=== PATIENT | female | born 1970 | race Caucasian/White ===

== ENCOUNTER → 2019-05-31 10:41 | Outpatient (BNVA) | payer MEDICAID, SELFPAY | PROVIDERS: Family Provider Internal Medicine; PCP Internal Medicine; Referring Provider Specialist; Visit Provider Psychiatry & Neurology Neurology | DX: M54.12 Radiculopathy, cervical region (principal); M79.601 Pain in right arm; M79.602 Pain in left arm; Z87.891 Personal history of nicotine dependence | CPT/HCPCS: 95886; 95910 ==

== ENCOUNTER 2019-06-24 10:53 | Observation (INO) | payer MEDICAID, SELFPAY ==
[2019-06-21 14:25] VITALS: BMI 38.5
[2019-06-24] VITALS (14 sets, daily range): BP systolic 116–158; BP diastolic 74–93; PULSE 71–108; RESP 14–20; TEMP 36.3–37.5; O2SAT 93–99
--- NOTE | 2019-06-24 | XR_ITS ---
WS: [id number] XR cervical spine 1V 10424 REASON FOR EXAM: ACDF FINDINGS: Degenerated disc changes C5-C6. The cervicothoracic junction is poorly . An endotracheal tube is seen in good position. XR/XR cervical spine 1V 91560 IMPRESSION: Good position endotracheal tube. Degenerated disc changes C5-C6. Poor definition of the cervicothoracic junction.
--- NOTE | 2019-06-24 06:49 | ANES.PREANE2 ---
Pre-Anesthetic Assessment Pre-Anesthetic Assessment: Height/Weight: Height 1.7 m Weight 111.584 kg Preop Diagnosis: Intervertebral disc disorder with myelopathy, midcervical Proposed Procedure: Operation Date: 06/24/19 07:00 Proposed Procedures p Anterior Cervical Discecotmy&Fusion 2Lev C4-C5,C5-C5 ACDFF 63912 M50.020(Not Applicable) - Anibal Wan MD Last intake: Intake Last Liquid Date 06/23/19 Last Liquid Time 22:00 Last Solid Date 06/23/19 Last Solid Time 19:30 Social: Social History: Tobacco (quit) and No alcohol Exam: Pre-Anes Outpt Exam: alert, oriented x 3, clear to auscultation bilaterally and regular rate & rhythm Airway: Submandibular: WNL Cervical ROM: WNL MP: 2 History/ROS: No significant history except as noted Pulmonary: Pulmonary: Asthma CV/HEM: CV/HEM: HTN Hepatic: Hepatic: None reported GI: GI: GERD Metabolic: Metabolic: Morbid obesity Musc/skel: Musc/skel: Lower Back Pain Neuropsych: Neuropsych: Anxiety, Depression and Neuropathy (left hand) Anesthetic Plan: ASA status: 3 Anesthesia: Anesthesia Evaluation and General Risk of > 500 ml blood loss (7ml/kg in children): No PFSH Anesthesia PFSH: Medical History Acute asthmatic bronchitis Cervical disc disorder with myelopathy of mid-cervical region Dysthymic disorder Extrapyramidal and movement disorder, unspecified GERD (gastroesophageal reflux disease) HNP (herniated nucleus pulposus), lumbar Hyponatremia Migraine Pneumonia Radiculopathy, site unspecified Spondylolisthesis, cervical region Surgical History H/O tubal ligation History of lumbar laminectomy Left L4-L5 laminotomy/discectomy/foraminotomy; 06/15/2017; [facility]. Family History Mother Stroke Deep vein thrombosis Secondary to cardiac problems Lung disease COPD Denies family history of Anesthesia complication Bleeding disorder Social History Smoking and tobacco status: former smoker Quit status (tobacco): has quit using tobacco Year quit tobacco: 2017 Former quit date comment: Started smoking at 15 and smoked 1/2 a pack a day until she quit smoking Alcohol intake: current Alcohol intake frequency: few times a month Alcohol type: wine Lives independently: Yes Household members: spouse Marital status: History of recent travel: No Data Anesthesia Cardiac Studies: No Data to Display
--- NOTE | 2019-06-24 07:00 | PM.HPUD ---
H&P update H&P Update: DATE OF SURGERY/PROCEDURE: 06/24/19 DATE H&P PERFORMED: 06/21/19 H&P UPDATE INFORMATION: H&P completed within last 30 days and H&P to be scanned into chart PREOP DIAGNOSIS: Intervertebral disc disorder with myelopathy, midcervical PRIMARY INDICATION FOR PROCEDURE: Neck pain and upper extremity symptoms. PLANNED PROCEDURE: Operation Date: 06/24/19 07:00 Proposed Procedures C4-C5,C5-C6 ACDFF 58486 M50.020(Not Applicable) - Anibal Wan MD Full H&P Perinent History: Medical/Surgical History: Medical History (Updated 06/24/19 @ 06:50 by Danilo Ibanez MD) Acute asthmatic bronchitis Cervical disc disorder with myelopathy of mid-cervical region Dysthymic disorder Extrapyramidal and movement disorder, unspecified GERD (gastroesophageal reflux disease) HNP (herniated nucleus pulposus), lumbar Hyponatremia Migraine Pneumonia Radiculopathy, site unspecified Spondylolisthesis, cervical region Family History: Family History (Updated 05/24/19 @ 13:16 by Lynn Caldwell LPN) Mother Stroke Deep vein thrombosis Secondary to cardiac problems Lung disease COPD Denies family history of Anesthesia complication Bleeding disorder Social History: Social History Smoking and tobacco status: former smoker Quit status (tobacco): has quit using tobacco Year quit tobacco: 2016 Former quit date comment: Started smoking at 15 and smoked 1/2 a pack a day until she quit smoking Alcohol intake: current Alcohol intake frequency: few times a month Alcohol type: wine Lives independently: Yes Household members: spouse Marital status: History of recent travel: No
[2019-06-24] MEDS: sodium chloride 0.9% 1,000 ML 30 ML IV (07:14)
--- NOTE | 2019-06-24 08:05 | XR_ITS ---
WS: [id number] XR cervical spine 1Vport 58918 REASON FOR EXAM: SURGERY FINDINGS: Intraoperative there is evidence of instrumentation anterior to the C4 level. The endotrach eal tube is seen in good position. Localization appears to be at C5 4-5 level. XR/XR cervical spine 1Vport 49801 IMPRESSION: Preoperative instrumentation.
--- NOTE | 2019-06-24 09:13 | SUR.OPER ---
called family in waiting area to give update
--- NOTE | 2019-06-24 09:15 | P.OP_ITS ---
Operative Report Date of procedure: June 24, 2019 Pre-op Diagnosis: Intervertebral disc disorder with myelopathy, midcervical Post-op diagnosis: same (with Instability of Joint) Procedure Done: 1. C4-C5, C5-C6 anterior cervical discectomy/osteophytectomy. 2. C4-C5, C5-C6 anterior cervical plate/screw fixation. 3. C4-C5, C5-C6 placement of intervertebral prosthetic devices. 4. C4-C5, C5-C6 anterior cervical fusion utilizing morselized autograft obtained from the osteophytectomy portions of the procedure. Implants: ACIS ProTi Spacers. Synthes Vectra plate/screws. Specimens removed/disposition: C4-C5, C5-C6 disc. Surgeon: Anibal Wan Anesthesia: General Estimated blood loss (mL): 10 IV fluids (mL): 700 Urine output (mL): 50 Complications: None. Condition: stable Disposition: PACU Brief History: The patient is a 48-year-old female with symptomatic, radiographically confirmed cervical disc/joint disease and associated neural impingement. Imaging studies demonstrated dominant abnormalities at C4-C5 and C5-C6. Conservative management did not provide adequate lasting symptom relief. After review of the diagnostic and treatment options with the risks/potential benefits/rationale for each, the patient requested to proceed with surgical intervention. Procedure: After routine preoperative evaluation and informed consent were obtained, the patient was taken to the Operating Room and placed under general endotracheal anesthesia. She was positioned supine and fit in the [place] tongs for the application of in-line cervical traction. The anterolateral neck on the left was prepared with hair clippers. A proposed transverse skin incision was marked with a sterile skin marker, utilizing intraoperative radiography and regional anatomy for localization. The area was scrubbed with Betadine, prepped with DuraPrep, and draped with sterile towels and drapes. [place] surgical barrier was applied. The proposed incision site was infiltrated with 1% Xylocaine with Epinephrine. A skin incision was made and carried down into the subcutaneous tissues. The platysma was identified and divided in the direction of its fibers. A plane was dissected just medial to the carotid sheath and lateral to the midline esophagus and trachea. Prevertebral soft tissues were bluntly dissected free of the anterior margin of the cervical spine. Longus coli muscles were freed from their medial attachments. Deep self-retaining retractors were placed. Intraoperative radiography verified the desired surgical levels. The C4-C5 and C5-C6 interspaces were sequentially incised with a #11 blade. Discectomies were accomplished utilizing various curettes and pituitary rongeurs. Anterior marginal osteophytes were resected with the [place] and [place] rongeurs. Cartilaginous end plates were stripped free with curettes. Posterior marginal osteophytes were resected with thin foot plate Kerrison rongeurs. The medial aspects of the neural foramina were enlarged in a similar manner. Posterior longitudinal ligament was divided and resected as necessary to further the decompression. Due to bony overgrowth of the disc space and marginal osteophyte contribution to neural impingement, the [employer] high-speed drill with veronica kaden was utilized to complete the osteophytectomy portions of the procedure and for endplate preparation. Once the decompressions were felt to be adequate at both levels, the disc spaces were sized. A 7 mm ACIS ProTi lordotic/small Spacer was chosen for C4-C5. A 7 mm ACIS ProTi lordotic/small Spacer was chosen for C5-C6. The Spacers were packed with morselized autograft obtained from the osteophytectomy portions of the procedure. The Spacers were sequentially placed within the C4-C5 and C5-C6 interspaces while in-line cervical traction was applied via the [place] tongs. Once the Spacers were felt to be in good position, a Synthes Vectra plate of the desired size was chosen. The plate was secured to the C4, C5 and C6 vertebral bodies with bilateral 4 mm x 12 mm self-drilling screws. Final screw tightening was performed, and the locking mechanisms within the plate were noted to engage the screws at each site. The construct was inspected and felt to be in good position and secure. The wound was copiously irrigated with sterile saline and antibiotic irrigation. Hemostasis was ensured with the bipolar electrocautery and Surgi-Fareed hemostatic matrix. Wound closure was performed in multiple layers with 2-0 Vicryl Plus simple interrupted closure of the platysma and deep dermis as separate layers. Final skin closure was performed with 4-0 Vicryl Plus in a running subcuticular pattern. Steri-Strips were applied and a sterile dressing was placed. The patient was released from the [place] tongs and fit in a [place] collar. She was transferred onto the Recovery Room cart in the supine position. She was extubated without incident. The patient tolerated the procedure well. All sponge, needle, and instrument counts were correct at the completion of the procedure.
--- NOTE | 2019-06-24 10:24 | PM.OP2 ---
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
--- NOTE | 2019-06-24 11:16 | P.DS_ITS ---
Discharge Providers Date of Admission: 06/24/19 10:53 Date of Discharge: June 24, 2019 Attending Provider at Admission: Anibal Wan MD Attending Provider at Discharge: Anibal Wan MD Primary Care Provider: Jean Smith DO Diagnoses at Discharge Discharge Diagnosis (1) Cervical disc disorder with myelopathy of mid-cervical region: Status: Acute Problem details: Patient is doing well after C4-C6 ACDFF earlier today. She appears appropriate for discharge home, as desired. (2) Spondylolisthesis, cervical region: Status: Acute (3) Instability of joint: Status: Acute Reason for Visit Reason for Visit: Reason For Visit: M50.020 Brief History: The patient is a 48-year-old female with symptomatic, radiographically confirmed cervical dis c/joint disease and associated neural impingement. Imaging studies demonstrated dominant abnormalities at C4-C5 and C5-C6. Conservative management did not provide adequate lasting symptom relief. After review of the diagnostic and treatment options with the risks/potential benefits/rationale for each, the patient requested to proceed with surgical intervention. Hospital Course Hospital Course: The patient underwent C4-C6 ACDFF on 06/24/2019. She tolerated the procedure well. She completed preoperative and postoperative intravenous antibiotics, and the Physical Therapy postoperative spine protocol. She was ambulatory, voiding and tolerating regular diet prior to discharge home on the evening of the day of surgery. Physical Exam Const: COMMON NORMALS: healthy appearing GENERAL APPEARANCE: cooperative and comfortable NUTRITIONAL APPEARANCE: obese (moderate) Neck/C-Spine: COMMON NORMALS: supple and no JVD GENERAL: Yes trachea midline and No anterior neck swelling CERVICAL SPINE: Yes collar present NECK IMAGES: 1. surgical incision Resp: COMMON NORMALS: normal respiratory effort EFFORT & INSPECTION: Yes able to speak in complete sentences, No tachypneic and No stridor Cardio: COMMON NORMALS: no JVD Extremity: COMMON NORMALS: no clubbing, cyanosis or edema Neuro: COMMON NORMALS: moves all extremities SPEECH: speech normal GAIT: Yes normal gait MOTOR EXAM: strength 5/5 throughout (bilateral upper extrem ities) Psych: ATTITUDE: Yes calm and Yes engaged ACTIVITY/MOTOR BEHAVIOR: Yes appropriate eye contact MOOD & AFFECT: Yes euthymic mood ATTENTION/CONCENTRATION: Yes attention grossly intact INSIGHT: insight good JUDGEMENT: judgment good Skin: WOUNDS: Yes surgical site (no surgical site erythema or drainage) Urinary Catheter Management^: Brantley: Cath Placed During This Visit: yes Urethral Indwelling: No Urinary Catheter Date of Insertion: 06/24/19 Urinary Catheter Time of Insertion: 08:10 Discharge Data Data Completed and Pending: Completed Studies During Hospitalization Category Date Time Status XR cervical spine 1V 63339 Routine Exams 06/24/19 Completed XR cervical spine 1Vport 17266 Rout ine Exams 06/24/19 08:05 Completed XR cervical spine 3V* 12815 Routine Exams 06/24/19 12:14 Completed Pathology: Surgic al [PTH] Routine Pth 06/24/19 10:45 Completed Imaging^: Other Xray: Attestation: I personally reviewed and interpreted this imaging study as follows: (Postop changes of recent C4-C6 ACDFF, without noted complication.) Procedures Performed: C4-C5, C5-C6 anterior cervical discectomy/o seophytectomy. C4-C5, C5-C6 anterior plate-screw fixation. C4-C5, C5-C6 placement of intervertebral prosthetic devices. C4-C5, C5-C6 interbody fusion using morselized autograft obtained from the osteo phytectomy. IV antibiotics. Physical Therapy. Vitals: Last Vital Signs Temp 98.2 F 06/24/19 18:32 Pulse 88 06/24/19 18:32 Resp 18 06/24/19 18:32 BP 130/84 06/24/19 18:32 Pulse Ox 93 06/24/19 18:32 Discharge Plan Discharge Patient Disposition: Home, Self-Care Condition: Stable Prescriptions: New hydrocodone-acetaminophen 7.5-325 mg Tablet 1 - 2 tab PO Q4H PRN (Reason: Moderate To Severe Pain) Qty: 30 RF: 0 Continued furosemide [Lasix] 40 mg tablet 40 mg PO QAM RF: 0 omeprazole 10 mg capsule,delayed release(DR/EC) 10 mg PO ONCE RF: 0 hydrochlorothiazide 25 mg tablet 25 mg PO QAM RF: 0 (DME) nebulizers Misc See Rx Instructions .ROUTE .MEDSUPPLY Qty: 1 RF: 0 duloxetine 60 mg capsule, delayed rel sprinkle 60 mg PO QDAY RF: 0 pregabalin [Lyrica] 150 mg capsule 150 mg PO QDAY RF: 0 albuterol sulfate 2.5 mg /3 mL (0.083 %) solution for nebulization 2.5 mg INHALATION Q6H PRN (Reason: Shortness Of Breath) RF: 0 alprazolam 0.5 mg tablet 0.5 mg PO QDAY RF: 0 albuterol sulfate [Ventolin HFA] 90 mcg/actuation HFA aerosol inhaler 2 puff INHALATION Q6H PRN (Reason: Shortness Of Breath) RF: 0 sumatriptan succinate [Imitrex] 25 mg tablet 25 mg PO ONCE RF: 0 Discharge Orders: Discharge Order (Routine); Ordered 06/24/19 Ordered By: Anibal Wan Other Ambulatory Orders: XR cervical spine 3V* [id number] (Routine) Timeframe: 2 Weeks Facility: [facility] - Location: Radiology [facility] Ordered By: Anibal Wan Referrals: Anibal Wan MD [Physician] - 2 weeks (Please Dr Wan's office in the morning to make 2 week follow-up appt. ) Discharge Diet: Advance as tolerated Discharge Activity: Limit activity as instructed Patient Instructions: Hydrocodone/Acetaminophen (By mouth), Anterior Cervical Discectomy (DC) Activity Restrictions/Additional Instructions: Activity -Cervical fusion: Wear cervical collar 24 hours a day. Change as necessary for showering, shaving, or if it becomes soiled. -No lifting or reaching overhead. - No driving until office followup visit - No lifting/pushing/pulling over 10 pounds - Avoid twisting or bending - Walking is encouraged - Home exercise per physical therapist - You may engage in sexual intercourse at any time as long as it is comfortable for you - Check with your doctor before returning to work. Notify your doctor if you develop: - temperature of 101.5 degrees F. or higher - redness or swelling of the incision - Foul drainage - increasing pain - increasing numbness or tingling in the arms or legs - New or increasing problems with vision, balance, memory, speaking, nausea or vomiting Hygiene: - Showering is okay - No tub baths or soaking Other: Remove outer bandage 3 days after surgery. If you have paper strips, leave in place until they fall off on their own. If you have stitches, keep your incision dry until the stitches are removed. Your doctor's office is available to answer any questions from 7 AM to 5:00 PM, Monday through at [phone]. After hours, go to the emergency room at [facility] or call 911 for assistance. 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
--- NOTE | 2019-06-24 12:14 | XR_ITS ---
WS: [id number] XR cervical spine 3V* [id number] REASON FOR EXAM: Arthrodesis status FINDINGS: Since earlier exams are now evidence of anterior fusion with pedicle screws from C4, C5, C6 with intraspinal space are seen. The overall alignment is satisfactory. XR/XR cervical spine 3V* [id number] IMPRESSION: Postop changes with anterior plate C4-C5-C6 with interspinal spacers.
[2019-06-24] MEDS: ketorolac 30 mg/mL INJ IVP (12:45)
[2019-06-24] MEDS: HYDROcodone-acetaminophen 7.5-325 mg Tablet PO ×2 (12:45→17:37)
[2019-06-24] MEDS: lactated ringers 1,000 ML 90 ML IV (12:47)
[2019-06-24] MEDS: SUMAtriptan 25 mg Tablet PO (15:25)
--- NOTE | 2019-06-24 18:31 | PC.NURSE ---
D/C instructions given to pt. Verbalized understanding. Denies needs at this time. Taken to personal vehicle via W/C with all personal belongings and hard[employer] of [place]
== END 2019-06-24 18:32 | disposition home or self-care (01) ==
LOC: MEDSURG 11:13
PROVIDERS: Admitting Provider Specialist; Family Provider Internal Medicine; PCP Internal Medicine; Visit Provider Specialist
PROC: 0RB30ZZ Excision of Cervical Vertebral Disc, Open Approach (ICD-10-PCS; CPT 22551; principal; 2019-06-24 07:00)
DX: M50.121 Cervical disc disorder at C4-C5 level with radiculopathy (principal); M43.12 Spondylolisthesis, cervical region; M53.2X2 Spinal instabilities, cervical region; Z87.891 Personal history of nicotine dependence; Z79.891 Long term (current) use of opiate analgesic; K21.9 Gastro-esophageal reflux disease without esophagitis; E66.01 Morbid (severe) obesity due to excess calories; Z68.38 Body mass index [BMI] 38.0-38.9, adult; J45.909 Unspecified asthma, uncomplicated
CPT/HCPCS: 20936; 22551; 22552; 22853 ×2; 12345; 51702; 72020; 72040; 88304; 96361; 96365; 96375; 97110; 97161; C1713; G0378; J0690; J1100; J1885; J2001; J2405; J2704; J3010; J3490; J7030; L0172; L0174

== ENCOUNTER 2019-08-21 09:07 | Outpatient (CLI) | payer MEDICARE, MEDICAID, SELFPAY ==
--- NOTE | 2019-08-21 09:16 | XR_ITS ---
WS: [id number] CERVICAL SPINE TECHNIQUE: 3 views of the cervical spine CLINICAL INFORMATION: s/p cervical spinal fusion COMPARISON: June 24, 2019 FINDINGS: Straightening of the normal cervical lordosis. Anterior and posterior cervical fusion C4-C6 with inte rbody fusion grafts. Mild prevertebral soft tissue edema. Normal C1-C2 articulation. Moderate facet a rthropathy. XR/XR cervical spine 3V* [id number] IMPRESSION: Straightening of the normal cervical lordosis with satisfactory postoperative c hanges ACDF C4-C6
== END 2019-08-21 09:08 | disposition home or self-care (01) ==
LOC: RADWPI 09:10
PROVIDERS: Family Provider Internal Medicine; PCP Internal Medicine; Visit Provider Specialist
DX: Z98.1 Arthrodesis status (principal)
CPT/HCPCS: 72040

== ENCOUNTER 2019-08-29 10:45 | Outpatient (CLI) | payer MEDICARE, MEDICAID, SELFPAY ==
--- NOTE | 2019-08-29 11:00 | CT_ITS ---
WS: [id number] CT CERVICAL SPINE HISTORY: s/p cervical spinal fusion TECHNIQUE: Contiguous 2.5 mm axial imaging performed through the entire cervical spine. Sagittal and coronal reformats also performed. All CT scans at [facility] use at least one of these do se optimization techniques: automated exposure control; mA and/or kV adjustment per patient size (inc ludes targeted exams where dose is matched to clinical indication); or iterative reconstruction. DLP: 1755.08 mGycm COMPARISON: 02/26/2019 Straightening of the normal cervical lordosis. Anterior cervical fusion with interbody spacers from C 4 through C6. No subsidence of the spacers or interval change. No fusion across the spaces. C2-C3: Mild LEFT foraminal narrowing. C3-C4: Mild hypertrophic osteophyte formation with mild LEFT foraminal narrowing. C4-C5: Diffuse osteophytic ridging around the vertebral bodies. Moderate to severe bilateral foramina l stenosis and mild central stenosis. C5-C6: Diffuse osteophytic ridging with encroachment upon the ventral thecal sac. Mild central with m oderate to severe bilateral foraminal stenosis. C6-C7: Diffuse osteophytic ridging. Mild central with moderate bilateral foraminal stenosis. C7-T1: Normal. Small bilateral cervical chain lymph nodes. Lung apices are clear. CT/CT cervical spin wo con* [id number] IMPRESSION: 1. Recent placement of an anterior cervical fusion from C4 through C6 with int erbody spacers. No complications are evident. 2. Multilevel foraminal and central stenosis as above, most significant at C4- 5 and C5-6.
== END 2019-08-29 10:46 | disposition home or self-care (01) ==
LOC: RADWPI 10:50
PROVIDERS: Family Provider Internal Medicine; PCP Internal Medicine; Visit Provider Licensed Practical Nurse
DX: Z98.1 Arthrodesis status (principal); M43.22 Fusion of spine, cervical region; M48.02 Spinal stenosis, cervical region
CPT/HCPCS: 72125

== ENCOUNTER 2020-12-07 15:36 | Emergency (ER) | payer MEDICARE, MEDICAID, SELFPAY ==
--- NOTE | 2020-12-07 15:39 | XRR_ITS ---
PROCEDURE INFORMATION: Exam: XR Chest Exam date and time: 12/07/2020 3:39 PM Age: 49 years old Clinical indication: Cough and shortness of breath; Patient HX: Cough, SOB, n/v/d x 3days; Additional info: Cough, low o2 TECHNIQUE: Imaging protocol: XR of the chest. Views: 1 view. COMPARISON: [facility] Chest 2 views 04/30/2019 10:07 AM FINDINGS: Lungs: Unremarkable. No consolidation. Pleural spaces: Unremarkable. No pleural effusion. No pneumothorax. Heart/Mediastinum: Unremarkable. No cardiomegaly. Bones/joints: Sequela of ACDF in the lower cervical spine. XR/XR chest 1V portable [id number] IMPRESSION: No acute findings.
[2020-12-07 16:03] VITALS: BP 113/82; PULSE 101; RESP 18; TEMP 36.9; O2SAT 95; BMI 35.0
[2020-12-07 21:02] LABS: Basophils % 0.4 %; Eosinophils # 0.5 10^3/uL (0.0-0.8); Eosinophils % 4.4 %; Hematocrit 37.1 % (37.0-47.0); Hemoglobin 11.9 g/dL (11.5-15.3); Lymphocytes # 2.6 10^3/uL (0.8-4.8); Lymphocytes % 23.2 %; Mean Corpuscular HGB Conc 32.1 g/dL (30.0-36.0); Mean Corpuscular Hemoglobin 26.7 pg (28.0-34.0); Mean Corpuscular Volume 83.2 fL (81-99); Mean Platelet Volume 10.7 fL (7.4-10.4); Monocytes # 0.6 10^3/uL (0.2-0.9); Monocytes % 5.2 %; Neutrophils # 7.42 10^3/uL (1.8-7.7); Neutrophils % 66.6 %; Nucleated Red Blood Cells % 0 %; Platelet Count 338 10^3/cmm (130-400); Red Blood Count 4.46 10^6/uL (4.1-5.3); Red Cell Distribution Width 14.6 % (12.1-15.1); White Blood Count 11.1 10^3/uL (4.0-10.0)
[2020-12-07 21:55] LABS: Alanine Aminotransferase 16 U/L (0-33); Alkaline Phosphatase 82 IU/L (35-105); Aspartate Amino Transferase 12 U/L (0-32); Blood Urea Nitrogen 10 mg/dL (6-20); Calcium 8.7 mg/dL (8.5-10.5); Carbon Dioxide 24 mmol/L (22-29); Chloride 99 mmol/L (98-107); Globulin 3.1 g/dL (1.3-4.6); Glomerular Filtration Rate 131.7 mL/min (90-130); Glucose 93 mg/dL (65-115); Osmolality Calculated 275 mOsm/kg (285-295); Sodium 133 mmol/L (136-145); Total Bilirubin 0.4 mg/dL (0.15-1.2); Total Protein 7.1 g/dL (6.6-8.7)
[2020-12-07 23:15] VITALS: BP 132/77; PULSE 93; RESP 17; O2SAT 96
--- NOTE | 2020-12-07 23:22 | W.ED.SOB ---
HPI - SOB/Dyspnea General: Chief Complaint: Shortness of Breath/Dyspnea Stated Complaint: cough, low 02, Time Seen by Provider: 12/07/20 23:22 History of Present Illness: HPI Narrative: Patient comes in with 2 to 3-day history of nasal congestion and now some mild shortness of breath and wheezing. Patient appears well. Patient appears no acute distress. MD elicited complaint: cough Review of Systems General: Reports: 10 or more systems reviewed and unremarkable except in HPI and below Resp: Reports: non-productive cough and wheezing PFSH ED PFSH: Medical History Acute asthmatic bronchitis Cervical disc disorder with myelopathy of mid-cervical region Dysthymic disorder Extrapyramidal and movement disorder, unspecified GERD (gastroesophageal reflux disease) HNP (herniated nucleus pulposus), lumbar Hyponatremia Migraine Pneumonia Surgical History H/O tubal ligation History of fusion of cervical spine (06/24/19) 06/24/2019. C4-C6 ACDFF History of lumbar laminectomy Left L4-L5 laminotomy/discectomy/foraminotomy; 06/15/2017; [facility]. Family History Mother Stroke Deep vein thrombosis Secondary to cardiac problems Lung disease COPD Denies family history of Anesthesia complication Bleeding disorder Social History Smoking and tobacco status: former smoker Alcohol intake: current Alcohol intake frequency: few times a month Alcohol type: wine Lives independently: Yes Household members: spouse Marital status: Current occupational status: employed History of recent travel: No Physical Exam Const: COMMON NORMALS: no acute distress and patient oriented x3 GENERAL APPEARANCE: cooperative HENMT: COMMON NORMALS: normocephalic and Normal external nose present HEAD & SCALP: normal to inspection and normocephalic NOSE: Normal external nose present MOUTH: Normal oral and palatal mucosa present Eye: GENERAL EYE: appearance normal, both eyes and all related structures Neck/C-Spine: COMMON NORMALS: full ROM Chest: COMMONS NORMALS: normal inspection of the chest Resp: COMMON NORMALS: normal respiratory effort EFFORT & INSPECTION: Yes able to speak in complete sentences AUSCULTATION: wheezes expiratory wheezes Cardio: COMMON NORMALS: regular rate and regular rhythm RATE: regular rate RHYTHM: regular rhythm GI: COMMON NORMALS: non-tender : COMMON NORMALS: Yes no CVA tenderness BLADDER/KIDNEY EXAM: Yes no CVA tenderness Back/Pelvis: COMMON NORMALS: no CVA tenderness and thoracic and lumbar spine normal to inspection Extremity: COMMON NORMALS: normal to inspection Neuro: COMMON NORMALS: patient oriented x3 and moves all extremities Psych: COMMON NORMALS: mental status grossly normal and cooperative Skin: COMMON NORMALS: no rashes or lesions noted GENERAL SKIN EXAM: no rashes or lesions noted Course Vital Signs: Vital signs: Vital Signs Temperature 98.4 F 12/07/20 16:03 Pulse Rate 93 12/07/20 23:15 Respiratory Rate 17 12/07/20 23:15 Blood Pressure 132/77 12/07/20 23:15 Pulse Oximetry 96 12/07/20 23:15 MDM - SOB/Dyspnea MDM Narrative: Medical decision making narrative: 49-year-old female comes in today with shortness of breath and nasal congestion. Patient reports symptoms for about 3 days now. Patient was concerned for COVID-19. On exam laboratory values were normal. Chest x-ray was normal. Differential diagnosis includes not limited to upper respiratory infection, asthma, bronchitis. No signs of significant infection is noted at this time. I feel the patient probably has a mild asthma that has been exacerbated with the season. Lab Data: Labs: Lab Results 12/07/20 12/07/20 12/07/20 Range/Units 20:47 20:47 23:19 WBC 11.1 H (4.0-10.0) 10^3/ uL RBC 4.46 (4.1-5.3) 10^6/u L Hgb 11.9 (11.5-15.3) g/dL Hct 37.1 (37.0-47.0) % MCV 83.2 (81-99) fL MCH 26.7 L (28.0-34.0) pg MCHC 32.1 (30.0-36.0) g/dL RDW 14.6 (12.1-15.1) % Plt Count 338 (130-400) 10^3/c mm MPV 10.7 H (7.4-10.4) fL Neut % (Auto) 66.6 % Lymph % (Auto) 23.2 % [place] % (Auto) 5.2 % Eos % (Auto) 4.4 % Baso % (Auto) 0.4 % Neut # (Auto) 7.42 (1.8-7.7) 10^3/u L Lymph # (Auto) 2.6 (0.8-4.8) 10^3/u L [place] # (Auto) 0.6 (0.2-0.9) 10^3/u L Eos # (Auto) 0.5 (0.0-0.8) 10^3/u L Baso # (Auto) 0.0 (0.0-0.1) 10^3/u L Nucleated RBC % (a uto) 0 % Nucleated RBCs # 0.0 /100WBC Sodium 133 L (136-145) mmol/L Potassium 4.0 (3.5-5.1) mmol/L Chloride 99 (98-107) mmol/L Carbon Dioxide 24 (22-29) mmol/L Anion Gap 14.0 (5-19) BUN 10 (6-20) mg/dL Creatinine 0.5 (0.5-0.9) mg/dL GFR Calculation 131.7 H (90-130) mL/min Glucose 93 (65-115) mg/dL Calculated Osmolal ity 275 L (285-295) mOsm/k g Calcium 8.7 (8.5-10.5) mg/dL Total Bilirubin 0.4 (0.15-1.2) mg/dL AST 12 (0-32) U/L ALT 16 (0-33) U/L Alkaline Phosphata se 82 (35-105) IU/L Total Protein 7.1 (6.6-8.7) g/dL Albumin 4.0 (3.5-5.2) g/dL Globulin 3.1 (1.3-4.6) g/dL SARS-CoV-2 Ag (Rap id) Negative (Negative) Discharge Plan Discharge Patient Disposition: Home Clinical Impression: Asthma with exacerbation Qualifiers: Asthma severity: mild Asthma persistence: intermittent Qualified Code(s): J45.21 - Mild intermittent asthma with (acute) exacerbation Condition: Stable Prescriptions: New dexamethasone 4 mg tablet 4 mg PO BID Qty: 10 RF: 0 No Action furosemide [Lasix] 40 mg tablet 40 mg PO QAM RF: 0 omeprazole 10 mg capsule,delayed release(DR/EC) 10 mg PO ONCE RF: 0 hydrochlorothiazide 25 mg tablet 25 mg PO QAM RF: 0 (DME) nebulizers Misc See Rx Instructions .ROUTE .MEDSUPPLY Qty: 1 RF: 0 duloxetine 60 mg capsule, delayed rel sprinkle 60 mg PO QDAY RF: 0 pregabalin [Lyrica] 150 mg capsule 150 mg PO QDAY RF: 0 albuterol sulfate 2.5 mg /3 mL (0.083 %) solution for nebulization 2.5 mg INHALATION Q6H PRN (Reason: Shortness Of Breath) RF: 0 alprazolam 0.5 mg tablet 0.5 mg PO QDAY RF: 0 albuterol sulfate [Ventolin HFA] 90 mcg/actuation HFA aerosol inhaler 2 puff INHALATION Q6H PRN (Reason: Shortness Of Breath) RF: 0 sumatriptan succinate [Imitrex] 25 mg tablet 25 mg PO ONCE RF: 0 betamethasone acet,sod phos [Celestone Soluspan] 6 mg/mL suspension 6 mg intra-articular ONCE Qty: 1 RF: 0 bupivacaine (PF) 0.5 % (5 mg/mL) solution 10 mg intra-articular ONCE Qty: 2 RF: 0 lidocaine (PF) 10 mg/mL (1 %) solution 20 mg intra-articular ONCE Qty: 2 RF: 0 hydrocodone-acetaminophen 7.5-325 mg Tablet 1 - 2 tab PO Q4H PRN (Reason: Moderate To Severe Pain) Qty: 30 RF: 0 Discharge Orders: Discharge ED (Routine); Ordered 12/07/20 Ordered By: Kavon Alegria Referrals: Jean Smith DO [Primary Care Provider] - Discharge Diet: Usual diet Discharge Activity: Increase activity as tolerated Patient Instructions: Asthma (ED), Opioid Safety Activity Restrictions/Additional Instructions: Use medications as directed. Drink plenty of water with medication. Use your nebulizer treatment machine 4 times a day. Use albuterol inhaler as needed when away from nebulizer machine. Follow-up with primary care for further instruction and treatment regarding asthma. Coding Level of Care Code ED History Faculty Member for Haylie Bhagat
--- NOTE | 2020-12-07 23:46 | PC.NURSE ---
pt only vomitted when she had a coughing fit.
[2020-12-07 23:49] LABS: SARS Covid-2 Antigen Negative (Negative)
[2020-12-08] MEDS: dexamethasone 4 mg Tablet 6 MG PO (00:03)
[2020-12-08 00:10] VITALS: PULSE 72; RESP 18; O2SAT 96
[2020-12-08] MEDS: albuterol 8 gm MDI 2 PUFF INHALATION (00:10)
[2020-12-08 00:15] VITALS: PULSE 73
[2020-12-08 00:57] VITALS: BP 131/95; PULSE 92; RESP 16; O2SAT 98
== END 2020-12-08 00:02 | disposition home or self-care (01) ==
PROVIDERS: Physician Assistant; Emergency Provider Nurse Practitioner Family; PCP Internal Medicine
DX: J45.21 Mild intermittent asthma with (acute) exacerbation (principal); Z87.891 Personal history of nicotine dependence; Z20.822 Contact with and (suspected) exposure to COVID-19
CPT/HCPCS: 71045; 80053; 85025; 87426; 94640; 99284; J3535; J8540

== ENCOUNTER 2021-02-03 20:00 | Outpatient (CLI) | payer MEDICARE, MEDICAID, SELFPAY | END 2021-02-03 20:01 | disposition home or self-care (01) | LOC: SLEEP 02-04 08:20 | PROVIDERS: PCP Internal Medicine; Visit Provider Internal Medicine | DX: G47.10 Hypersomnia, unspecified (principal); R06.83 Snoring; R53.83 Other fatigue; G47.33 Obstructive sleep apnea (adult) (pediatric) | CPT/HCPCS: 95810 ==